=== PATIENT | male | born 1980 ===

== ENCOUNTER 2023-06-23 11:46 | Outpatient (AMB) | payer OTHER, SELFPAY ==
--- NOTE | 2023-06-23 13:48 | HO.SPINEOV ---
Intake Intake Visit Reasons: back pain due to injury Intake Note: Mr. Friedman is here today c/o back pain. MRI done @ [facility]/brought disc. [employer] Department Chair Required: No Assessment & Plan Assessment & Plan (1) Back pain: Code(s): M54.9 - Dorsalgia, unspecified Plan Mr Friedman is a patient who self-referred himself here to the office today. He had previously seen Dr. Huang and her team down at [facility] for evaluation of a work related injury where he strained his back when he was using a hand truck and had been experiencing back pain as well as pain in his medial thigh on the left. The MRI reports were not all that convincing of any major structural damage. The patient is had previously been a patient of Dr. Armstrong so he came into this office for a 2nd evaluation. He tells me that the primary symptoms he is experiencing are pain in the center of his low back in the lumbar region which goes it into his a medial thigh and radiates down to his medial knee. There is occasionally tingling. The symptoms seem to be worse with activity. Occasionally his left leg will feel like it gives out from underneath him. He is continuing to do physical therapy and [id number] medications as needed. He did have an injection but can not recall exactly where was done. PMH: He is otherwise healthy, history of kidney stones, sleep apnea Social hx: He does not smoke Medications: Omeprazole, cyclobenzaprine Allergies: None Physical exam: He has intact strength reflexes and normal gait Imaging review: Lumbar MRI done at [facility] in 2021 shows mild degenerative disc disease at L4-5 with no significant signs of malalignment or nerve compression. Impression: 42-year-old gentleman who was injured at work who has what now sounds like progressive back pain over the last 2 years since that injury without any discernible explanation. He also has a medial thigh pain which gives some occasional tingling in feelings as if his leg will come out from underneath him. He has failed conservative treatment. There were no surgical options offered to him by Dr. Huang. At the current imaging I have to review I do not see any evidence of any structural abnormality. This image was a year old so I would like to repeat the MRI and see if there is anything that is changed. Thank you for allowing us to care for your patient. The total time spent with this visit with this patient was 45 minutes reviewing history, physical exam, lumbar imaging review, and implementation of treatment plan or further diagnostic testing Ryan Armstrong MD,PhD [facility] Orders: Orders MR lumbar spine wo con Today M54.9 - Dorsalgia, unspecified Coding Level of Care Code New Pt Level 4 (73992) Diagnoses Back pain M54.9
== END 2023-06-23 14:06 | disposition home or self-care (01) ==
PROVIDERS: PCP Internal Medicine; Visit Provider Physician Assistant
DX: M54.9 Dorsalgia, unspecified (principal)
CPT/HCPCS: 99204

== ENCOUNTER → 2023-06-23 11:46 | Outpatient (BNVA) | payer OTHER, SELFPAY | PROVIDERS: PCP Internal Medicine; Visit Provider Physician Assistant | DX: M54.9 Dorsalgia, unspecified (principal) | CPT/HCPCS: 99202 ==

== ENCOUNTER 2023-08-09 07:16 | Outpatient (REF) | payer OTHER, SELFPAY ==
--- NOTE | ~2023-08-09 | MR_ITS ---
EXAMINATION: MR LUMBAR SPINE WITHOUT CONTRAST CLINICAL INFORMATION: Dorsalgia. COMPARISON: None available. TECHNIQUE: MRI of the lumbar spine was obtained using routine sequences without the administration of intravenous contrast. FINDINGS: This examination assumes the presence of 5 lumbar type vertebral bodies. For the purposes of this examination, the L5-S1 intervertebral disc space is visualized on axial series 7 image 28. The normal lumbar lordosis is preserved. No significant spondylolisthesis. Lumbar vertebral body heights are maintained. No expansile or destructive osseous lesion. The conus medullaris and cauda equina nerve roots are unremarkable; the conus terminates at the level of L1. L1-L2: No significant spinal canal or neural foraminal stenosis. L2-L3: No significant spinal canal or neural foraminal stenosis. L3-L4: Left foraminal/far lateral disc protrusion contributing to moderate left neural foraminal stenosis and impingement of the exiting left L3 nerve root in the far lateral space. The spinal canal and right neural foramen are patent. L4-L5: Eccentric left disc bulge and osteophytic ridging extending into the left neural foramen/far lateral space. The spinal canal is not significantly narrowed. The right neural foramen is patent. There is moderate left neural foraminal stenosis. L5-S1: Disc bulge and osteophytic ridging with right subarticular annular fissure. There is mild narrowing of the right lateral recess in close approximation to the descending right S1 nerve root. The spinal canal is otherwise patent. Mild narrowing of the neural foramen. MR/MR lumbar spine wo con IMPRESSION: Left foraminal/far lateral disc protrusion at L3-L4 with moderate left neural foraminal stenosis and impingement of the exiting left L3 nerve root in the far lateral space. Moderate left neural foraminal stenosis at L4-L5.
== END 2023-08-09 07:17 | disposition home or self-care (01) ==
LOC: HO.MRI 07:16
PROVIDERS: Visit Provider Physician Assistant
DX: M54.9 Dorsalgia, unspecified (principal)
CPT/HCPCS: 72148

== ENCOUNTER 2024-02-16 13:39 | Outpatient (AMB) | payer OTHER, SELFPAY ==
--- NOTE | 2024-02-16 13:40 | HO.SPINEOV ---
Intake Visit Reasons: follow up back from Ambrosio Saenz Intake Note: Mr. 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 Residence Supervisor Required: No Assessment & Plan Assessment & Plan (1) Back pain: Code(s): M54.9 - Dorsalgia, unspecified Category: Medical Plan Mr Friedman is here in follow-up today. I had previously seen him for evaluation of a work-related injury and did not find anything meaningful on either his old MRI or the new 1 that I ordered. He is following up today after an injection done with Dr. Johnston gave him relief. From the records it looks like an L5 injection gave him significant improvement. He has back pain and a medial thigh pain which runs from about his medial groin down to his medial knee. There is hypersensitivity and pain with movement. Unfortunately, from his MRI imaging done here at [place], I do not see any pathology really other than some just mild disc degeneration at L5-S1 which is nonspecific and could just be age related. There is no evidence of nerve compression. I do not have any surgery to offer him. This is the same opinion that he received from Dr. Menard at [facility]. He was interested in physical therapy so I gave him a referral so he could try to work out some of the discomfort but I am not exactly sure what they will do or what they will target. He can follow-up on an as-needed basis. Total amount of time spent in this visit was 20 minutes in discussion of symptoms, lumbar imaging results and subsequent plan of care Ryan Armstrong MD,PhD [facility] Orders: Orders PT Evaluation and Treatment Today M54.9 - Dorsalgia, unspecified
== END 2024-02-16 14:15 | disposition home or self-care (01) ==
PROVIDERS: PCP Internal Medicine; Visit Provider Physician Assistant
DX: M54.9 Dorsalgia, unspecified (principal)
CPT/HCPCS: 99213

== ENCOUNTER → 2024-02-16 13:39 | Outpatient (BNVA) | payer OTHER, SELFPAY | PROVIDERS: PCP Internal Medicine; Visit Provider Physician Assistant | DX: M54.9 Dorsalgia, unspecified (principal) | CPT/HCPCS: 99212 ==